=== PATIENT | female | born 1970 | race Caucasian/White ===

== ENCOUNTER 2021-02-11 07:31 | Emergency (ER) | payer SELFPAY ==
[~2021-02-11] VITALS: Ht 154.9 cm; Wt 78.0 kg
[2021-02-11] MEDS ORDERED: TETANUS, DIPHTHERIA, PERTUSSIS VAC/PF 0.5ML (>7YR OLD) IM ONE (08:30)
[2021-02-11] MEDS ORDERED: HYDROCODONE/ACETAMINOPHEN 5/325MG TABLET PO ONE (08:30)
[2021-02-11] MEDS ORDERED: HYDR-4001 MT (11:44)
[2021-02-11] MEDS ORDERED: IBUP-2029 MT (11:44)
[2021-02-11 12:43] VITALS: BP 117/55
== END 2021-02-11 12:44 | disposition home or self-care (01) ==
LOC: ER 07:36 → EDBD 07:36 → ER 12:44
DX: S42.001A Fracture of unspecified part of right clavicle, initial encounter for closed fracture (principal); M25.552 Pain in left hip; V98.8XXA Other specified transport accidents, initial encounter; Y93.89 Activity, other specified; Y92.89 Other specified places as the place of occurrence of the external cause; Y99.8 Other external cause status
CPT/HCPCS: 73000; 73030; 73130; 73502; 73660; 90471; 90715; 99284; Z7610; A4565